=== PATIENT | female | born 2000 ===

== ENCOUNTER 2018-09-16 23:54 | Emergency (ER) | payer MEDICAID ==
[2018-09-16 23:54] VITALS: BMI 21.7
[2018-09-17 00:07] VITALS: RESP 18
--- NOTE | 2018-09-17 00:28 | ED PDOC ---
Arrival/HPI - General Historian: Patient - History of Present Illness Narrative History of Present Illness (Text): Patient is a 18 yr old female with PMH of uncomplicated vaginal delivery 12 days ago who presents with complaint of fatigue, fevers, chills, body aches, cough rhinorrhea and congestion as well as new onset breast pain beginning today. She has been breast feeding for the past 12 days without difficulty. She is here with her and three children two of whom have similar symptoms and have a positive flu test. She denies any redness or swelling in the area and denies any abnormal discharge from the breast other than milk. 09/17/18 00:23 Time/Duration: Prior to Arrival, 4-6 hours Symptom Onset: Gradual Symptom Course: Unchanged Quality: Aching Severity Level: 4 <Zahraa Nelson - Last Filed: 09/17/18 02:08> <Thor Valencia - Last Filed: 09/17/18 03:36> - General Chief Complaint: Flu-like Symptoms Time Seen by Provider: 09/16/18 23:58 Past Medical History - Provider Review Nursing Documentation Reviewed: Yes - Past History Past History: No Previous - Psychiatric Hx Depression: (unk) Hx Substance Use: No - Anesthesia Hx Anesthesia: No Hx Anesthesia Reactions: No Hx Malignant Hyperthermia: No - Suicidal Assessment Feels Threatened In Home Enviroment: No <Zahraa Nelson - Last Filed: 09/17/18 02:08> Family/Social History - Physician Review Nursing Documentation Reviewed: Yes Family/Social History: Unknown Family HX Smoking Status: Never Smoked Hx Alcohol Use: No Hx Substance Use: No Hx Substance Use Treatment: (Denied) <Zahraa Nelson - Last Filed: 09/17/18 02:08> Allergies/Home Meds <Zahraa Nelson - Last Filed: 09/17/18 02:08> <Thor Valencia - Last Filed: 09/17/18 03:36> Allergies/Adverse Reactions: Allergies No Known Allergies Allergy (Verified 09/30/16 08:37) Review of Systems - Physician Review All systems were reviewed & negative as marked: Yes - Review of Systems Constitutional: Fatigue, Fevers Respiratory: Cough. absent: SOB Cardiovascular: absent: Chest Pain Gastrointestinal: absent: Abdominal Pain, Nausea, Vomiting Musculoskeletal: Other (body aches) Neurological: absent: Headache, Dizziness Endocrine: Diaphoresis <Nicolasa Nelsonah - Last Filed: 09/17/18 02:08> Physical Exam Vital Signs Temp Pulse Resp BP Pulse Ox 09/16/18 23:54 102.2 F H 144 H 18 118/85 96 Temperature: Febrile Blood Pressure: Normal Pulse: Tachycardic Respiratory Rate: Normal Appearance: Positive for: Ill-Appearing, Uncomfortable Pain Distress: Moderate Mental Status: Positive for: Alert and Oriented X 3 - Systems Exam Head: Present: Atraumatic, Normocephalic Extroacular Muscles: Present: EOMI Mouth: Present: Moist Mucous Membranes Neck: Present: Normal Range of Motion Respiratory/Chest: Present: Clear to Auscultation, Good Air Exchange. No: Respiratory Distress, Accessory Muscle Use, Wheezes, Rhonchi Cardiovascular: Present: Normal S1, S2, Tachycardic. No: Murmurs Abdomen: Present: Normal Bowel Sounds. No: Tenderness, Distention, Peritoneal Signs Breast/Axillary: Present: Nipple Discharge (lactating), Swelling (appropriate and symmetrical per lactating), Symmetrical, Tender to Palpation. No: Axillary Lymphad, Discoloration, Erythema, Fluctuance, Masses Upper Extremity: Present: Normal Inspection, NORMAL PULSES. No: Cyanosis, Edema Lower Extremity: Present: Normal Inspection, NORMAL PULSES. No: Edema, CALF TENDERNESS Neurological: Present: GCS=15, CN II-XII Intact, Speech Normal Skin: Present: Warm, Rashes, Normal Color, Diaphoretic. No: Dry Psychiatric: Present: Alert, Oriented x 3, Normal Insight, Normal Concentration <Nicolasa Nelsonah - Last Filed: 09/17/18 02:08> Vital Signs Temp Pulse Resp BP Pulse Ox 09/17/18 01:57 100.0 F H 145 H 18 113/78 98 09/16/18 23:54 102.2 F H 144 H 18 118/85 96 <Thor Valencia - Last Filed: 09/17/18 03:36> Medical Decision Making ED Course and Treatment: Impression: 18 yr old female with flu like illness and child with possitive flu test, additional new onset breast tenderness today (currently ) likely blocked mammary duct Plan: Rapid flu pain control warm compresses to breast 09/17/18 00:33 Pt decided to sign out AMA as her 12 dya old child was being transferred to [facility] to NICU for positive flu test and she did not want to be from him. All risks and benefits were discussed with the patient. All questions were answered to the patient's satisfaction. 09/17/18 02:08 <Zahraa Nelson - Last Filed: 09/17/18 02:08> ED Course and Treatment: Impression: Pt seen and evaluated with resident. Aware and agree with HPI, clinical findings, plan, and management. Pt, whose past medical history includes recent spontaneous vaginal delivery 12 days prior with no complications, presented for fever, chills, body aches, cough, and breast pain. Plan: -- Rapid influenza -- Tylenol -- Tamiflu -- Reassess and disposition - Medication Orders Current Medication Orders: Acetaminophen (Tylenol 325mg Tab) 325 mg PO STAT STA Stop: 09/17/18 01:57 Oseltamivir Phosphate (Tamiflu Cap) 75 mg PO BID [facility]; Protocol Stop: 09/22/18 00:37 Last Admin: 09/17/18 01:11 Dose: 75 mg Discontinued Medications Acetaminophen (Tylenol 325mg Tab) 650 mg PO STAT STA Stop: 09/17/18 00:40 Last Admin: 09/17/18 01:11 Dose: 650 mg MAR Pain/Vitals Document 09/17/18 01:11 (Rec: 09/17/18 01:11 [id number] Pain Reassessment Is This A Pain ReAssessment? No <Thor Valencia - Last Filed: 09/17/18 03:36> - PA / GAS ENGINE OPERATOR / Resident Statement COURTNEY has reviewed & agrees with the documentation as recorded. COURTNEY has examined the patient and agrees with the treatment plan. <Thor Valencia - Last Filed: 09/17/18 03:36> Disposition/Present on Arrival - Present on Arrival Any Indicators Present on Arrival: No History of DVT/PE: No History of Uncontrolled Diabetes: No Urinary Catheter: No History of Decub. Ulcer: No History Surgical Site Infection Following: None - Disposition Have Diagnosis and Disposition been Completed?: Yes Disposition Time: 02:05 Patient Plan: Discharge (AMA) <Zahraa Nelson - Last Filed: 09/17/18 02:08> <Thor Valencia - Last Filed: 09/17/18 03:36> - Disposition Diagnosis: Flu-like symptoms Disposition: AGAINST MEDICAL ADVICE Condition: FAIR Prescriptions: Oseltamivir Cap [Tamiflu] 75 mg PO BID #10 cap Forms: [employer] (Korean)
[2018-09-17 01:58] VITALS: BP 113/78; PULSE 145; O2SAT 98
[2018-09-17 02:22] VITALS: TEMP 100
== END 2018-09-17 02:20 | disposition left against medical advice (07) ==
LOC: ED 23:54
DX: J11.1 Influenza due to unidentified influenza virus with other respiratory manifestations (principal)